=== PATIENT | male | born 1980 | race Two or more races ===

== ENCOUNTER 2018-02-26 19:48 | Emergency (ER) | payer OTHER ==
[~2018-02-26] VITALS: Ht 182.9 cm; Wt 81.6 kg
[2018-02-26 20:10] VITALS: BP 117/71
--- NOTE | 2018-02-26 20:16 | Emergency Room Report ---
History of Present Illness General Chief Complaint: Toothache Source: Patient Present Illness HPI Patient is a 37-year-old male presented after increased right sided dental pain. Patient reports having prior history of bad tooth which he was supposed to have a root canal on. He denies any recent trauma. He reports having previous the pain to that area as well as prior dental abscess. He denies any fever. He reports having gradually worsening pain.He states this had been relieved with aspirin. Allergies: Coded Allergies: No Known Allergies (Unverified , 02/26/18) Patient History Past Medical History: see triage record Reviewed Nursing Documentation: PMH: Agreed; PSxH: Agreed Nursing Documentation-PMH Past Medical History: No Stated History Review of Systems All Other Systems: negative except mentioned in HPI Physical Exam Vital Signs Date Time Temp Pulse Resp B/P (MAP) Pulse Ox O2 Delivery O2 Flow Rate FiO2 02/26/18 19:55 98.9 85 16 117/71 97 Room Air 99.0 General Appearance: well appearing, no apparent distress, alert, GCS 15 Head: normocephalic, atraumatic ENT: hearing grossly normal, normal voice, other - right side swelling near 1st molar, slight gingival swelling Neck: full range of motion, supple Respiratory: lungs clear, no respiratory distress, speaking full sentences Cardiovascular #1: normal inspection, no edema Gastrointestinal: normal inspection, soft Musculoskeletal: no calf tenderness Neurologic: normal inspection, alert, oriented x3, responsive, normal gait Psychiatric: mood/affect normal Skin: no rash Medical Decision Making Diagnostic Impression: Primary Impression: Dental abscess ER Course Patient presented for dental pain. Differential diagnosis included but was not limited to trigeminal neuralgia, dental abscess, dry socket, osteomyelitis, nerve injury. The patient was noted to have a benign exam. The patient appears safe for follow-up with oral surgery for definitive management. Patient is advised to return if he began having worsening condition or difficulty breathing. Patient is advised to return if any worsening condition or if any changes in status that are concerning. Last Vital Signs Date Time Temp Pulse Resp B/P (MAP) Pulse Ox O2 Delivery O2 Flow Rate FiO2 02/26/18 20:10 99.0 85 16 117/71 97 Room Air 99.0 Status: improved Disposition: HOME, SELF-CARE Condition: Stable Scripts Ibuprofen* (MOTRIN*) 600 Mg Tablet 600 MG ORAL THREE TIMES A DAY, #30 TAB 0 Refills Prov: Giuseppe Warren MD 02/26/18 Giuseppe Warren MD Feb 26, 2018 20:16
[2018-02-26] MEDS ORDERED: IBUPROFEN600 MG ORAL (20:20)
[2018-02-26] MEDS ORDERED: Bicillin LA 1.2MMU/2ML SYR IM ONE (20:30)
[2018-02-26 20:42] VITALS: BP 122/78
== END 2018-02-26 20:44 | disposition home or self-care (01) ==
LOC: EMR 20:14
DX: K04.7 Periapical abscess without sinus (principal)
CPT/HCPCS: 96372; 99283; J0561